=== PATIENT | male | born 1945 | race Hispanic/Latino ===

== ENCOUNTER 2018-03-27 09:53 | Outpatient (CLI) | payer MEDICARE ==
--- NOTE | 2018-03-27 13:11 | CT ---
CT OF THE CHEST WITHOUT CONTRAST: Date: 03/27/18 HISTORY: Chest x-ray showed an abnormality in the lung. COMPARISON: Chest x-ray dated 03/12/18. TECHNIQUE: Multiple contiguous axial images were obtained in a CT of the chest without contrast. Coronal reforma ts were performed. FINDINGS: A calcified granuloma is seen in the hilar region inferiorly in the right lung. No suspicious pulmona ry nodule is seen at the area of abnormality on chest x-ray. No pneumothorax or pleural effusions see n. No focal infiltrates are seen in the lungs. The heart is normal in size without focal cardiac abnormality. There are calcified hilar and mediasti nal lymph nodes. No enlarged hilar or mediastinal lymph nodes are present. The patient is status post cholecystectomy. Degenerative changes are seen in the spine. The chest wal l soft tissues are unremarkable. IMPRESSION: No suspicious intrathoracic abnormality. POS: [facility]
== END 2018-03-27 09:54 | disposition home or self-care (01) ==
LOC: CT 09:53
PROVIDERS: ATTEND Family Medicine
DX: R91.1 Solitary pulmonary nodule (principal)
CPT/HCPCS: 71250

== ENCOUNTER 2018-04-29 17:48 | Observation (INO) | payer MEDICARE ==
[2018-04-29 18:38] LABS: #Eosinphils 0.3 thou/uL (0.0-0.7); #Lymphocytes 0.6 thou/uL (1.20-3.40); #Monocytes 0.4 thou/uL (0.11-0.59); #Neutrophils 3.8 thou/uL (1.40-6.50); %Basophils 0.7 % (0.0-1.0); %Lymphocytes 11.1 % (21.0-51.0); %Monocytes 6.9 % (0.0-10.0); %Neutrophils 75.3 % (42.0-75.0); Mean Corpuscular HGB CONC 34.8 g/dL (32.0-36.0); Mean Corpuscular Hemoglobin 31.6 pg (27.0-31.0); Mean Corpuscular Volume 90.7 fL (78.0-98.0); Mean Platelet Volume 7.2 fL (7.4-10.4); Platelet Count 156 thou/uL (130-400); RBC Distribution Width 13.1 % (11.5-14.5); Red Blood Cell (RBC) Count 3.17 mill/uL (4.70-6.10); White Blood Cell (WBC) Count 5.1 thou/uL (4.8-10.8)
[2018-04-29 19:00] LABS: ALT (SGPT) 8 U/L (8-55); AST (SGOT) 9 U/L (5-34); Albumin 4.3 g/dL (3.4-4.8); Alkaline Phosphatase 106 U/L (40-150); Anion Gap 13 mmol/L (10-20); BUN (Urea Nitrogen) 62 mg/dL (8.4-25.7); Bilirubin, Total 0.3 mg/dL (0.2-1.2); Calc. Creatinine Clearance 0 mL/min (70-130); Calcium 7.9 mg/dL (7.8-10.44); Carbon Dioxide 16 mmol/L (23-31); Chloride 114 mmol/L (98-107); Estimated GFR-MDRD 11; Globulin 3.4 g/dL (2.4-3.5); Glucose 130 mg/dL (83-110); Lipase 70 U/L (8-78); Magnesium 1.8 mg/dL (1.6-2.6); Potassium 5.3 mmol/L (3.5-5.1); Protein, Total 7.7 g/dL (5.8-8.1); Sodium 138 mmol/L (136-145)
[2018-04-29 19:01] LABS: Troponin I 0.043 ng/mL (< 0.028)
[2018-04-29 19:16] LABS: Bilirubin Negative (Negative); Blood, Urine Moderate (Negative); Clarity CLEAR (Clear); Glucose, Urine (Dipstick) 100 mg/dL (Negative); Leukocyte Negative (Negative); Nitrite Negative (Negative); Protein, Urine (Dipstick) > or equal to 300 mg/dL (Neg-Trace); Specific Gravity, Urine 1.016 (1.002-1.036); Urobilinogen 0.2 mg/dL (0.2-1.0)
[2018-04-29 19:17] LABS: Bacteria/HPF None Seen HPF (None Seen); Hyaline Casts/LPF 4-6 HYALINE CAST LPF (0-3 Hyaline); Pathc Cast-AUWi Flag 1.01 (0-2.49); RBC/HPF 0-3 HPF (0-3); Squamous Epithelial 0-3 HPF (0-3)
--- NOTE | 2018-04-29 19:18 | RAD ---
ONE VIEW CHEST: 04/29/18 COMPARISON: 06/12/16, 04/27/18. FINDINGS: There is cardiomegaly and pulmonary vascular prominence. Interstitial edema is noted. There are bilat eral pleural effusions with bibasilar parenchymal change. Opacification of the right lung base is sta ble. There is increasing opacification of the left lung base. No pneumothorax or osseous abnormalitie s. IMPRESSION: 1. Congestive heart failure. 2. Right pleural and parenchymal changes. 3. Left parenchymal changes. 4. Possible bibasilar pneumonia. Continued surveillance. POS: [facility]
[2018-04-29 19:21] LABS: Yeast-AUWi Flag 63.2 (0-25.0)
[2018-04-29 19:30] LABS: Crystals/HPF 1+ AMORPH URATES HPF (Negative)
[2018-04-29] MEDS ORDERED: Acetaminophen 325 MG TAB PO PRN (20:55)
[2018-04-29] MEDS ORDERED: Ondansetron PF 4 MG/2 ML Vial IVP PRN (20:55)
[2018-04-29] MEDS ORDERED: Ondansetron ODT 4 MG TAB SL PRN (20:55)
[2018-04-29] MEDS ORDERED: Amoxicillin/Potassium Clav 875 MG TAB PO SCH (21:00)
[2018-04-29 21:13] VITALS: BMI 26.9
[2018-04-29] MEDS ORDERED: Dextrose 5% in Water 1,000 ML IV PRN (22:41)
[2018-04-29] MEDS ORDERED: Dextrose 50% Abboject 50 ML SYRINGE SLOW IVP PRN (22:41)
[2018-04-29] MEDS ORDERED: HumaLOG 300 UNITS/3 ML VIAL SC PRN ×2 (22:41)
[2018-04-29] MEDS ORDERED: Nitroglycerin 0.4 MG TAB (25 Tab Bottle) SL PRN (22:45)
[2018-04-30 05:09] LABS: #Eosinphils 0.2 thou/uL (0.0-0.7); #Lymphocytes 0.6 thou/uL (1.20-3.40); #Monocytes 0.3 thou/uL (0.11-0.59); #Neutrophils 2.9 thou/uL (1.40-6.50); %Basophils 0.3 % (0.0-1.0); %Eosinophils 5.6 % (0.0-10.0); %Lymphocytes 13.8 % (21.0-51.0); %Monocytes 7.9 % (0.0-10.0); %Neutrophils 72.4 % (42.0-75.0); Hemoglobin 8.8 g/dL (14.0-18.0); Mean Corpuscular HGB CONC 33.2 g/dL (32.0-36.0); Mean Corpuscular Hemoglobin 30.2 pg (27.0-31.0); Mean Platelet Volume 7.4 fL (7.4-10.4); Platelet Count 140 thou/uL (130-400); RBC Distribution Width 13.2 % (11.5-14.5); Red Blood Cell (RBC) Count 2.92 mill/uL (4.70-6.10); Reticulocyte Count 2.4 % (0.5-1.5)
[2018-04-30 05:14] LABS: Anion Gap 13 mmol/L (10-20); BUN (Urea Nitrogen) 61 mg/dL (8.4-25.7); Calc. Creatinine Clearance 14 mL/min (70-130); Calcium 7.6 mg/dL (7.8-10.44); Carbon Dioxide 16 mmol/L (23-31); Chloride 117 mmol/L (98-107); Estimated GFR-MDRD 12; Glucose 97 mg/dL (83-110); Iron 32 ug/dL (65-175); Iron Binding Capacity, Total 271 mcg/dL (261-462); Potassium 5.1 mmol/L (3.5-5.1); Sodium 141 mmol/L (136-145)
[2018-04-30 05:44] LABS: Folate (Folic Acid) 7.2 ng/mL (7.0-31.4)
--- NOTE | 2018-04-30 06:29 | HP ---
CHIEF COMPLAINT: Abdominal pain. HISTORY OF PRESENT ILLNESS: This is a 73-year-old male with past medical history of colon cancer, status post colectomy with ostomy stage 5 CKD, not on dialysis; PUD; hypertension; diabetes mellitus; recently treated for aspiration pneumonia with Augmentin in the outpatient setting. Patient is not coming in with epigastric abdominal pain, which has been ongoing prior to the day of admission. Per patient, he was sent to be evaluated in the ED by his primary care physician. The patient states that Dr. Langley is his GI doctor. The patient is here, so the patient can be able to be evaluated in the hospital for his epigastric pain and chest discomfort which radiates to his throat. Patient denies any fever, shortness of breath, or palpitations. Admits to vomiting x1. REVIEW OF SYSTEMS: Nausea and vomiting x1, epigastric pain and discomfort, otherwise as documented in the HPI. All other systems were reviewed and are negative. PAST MEDICAL HISTORY: Diabetes mellitus type 2; hypertension; hyperlipidemia; renal insufficiency; PUD; colon cancer, status post colectomy. PAST SURGICAL HISTORY: Cholecystectomy, colostomy. FAMILY HISTORY: Reviewed and noncontributory PSYCHIATRIC HISTORY: No psych history. SOCIAL HISTORY: Patient denies alcohol use, denies illicit drug use, or denies any smoking. KNOWN ALLERGIES: LATEX, GLOVES. CURRENT MEDICATIONS: The patient is on; 1. Augmentin 875 mg/125 mg. 2. Amlodipine 10 mg. 3. Aspirin 325 mg. 4. Metoprolol 25 mg. 5. Pantoprazole 40 mg. 6. Sodium bicarbonate 10. 7. Torsemide 20 mg. PHYSICAL EXAMINATION: VITAL SIGNS: Blood pressure is 167/74, pulse is 87, respiratory rate of 20, temperature of 98.5, O2 sat of 95. GENERAL: The patient is sitting on the edge of his bed, does not appear to be in any acute distress. The patient is emptying his ostomy bag. HEENT: Normocephalic, atraumatic. Pupils are equal, round, and react to light. Extraocular movements are intact. No scleral icterus. No conjunctival pallor. Mucous membranes are dry. NECK: No JVD. Full range of motion, supple. Trachea is midline. LUNGS: Clear to auscultation bilaterally. No wheezing, no rales, no rhonchi appreciated. CARDIAC: Positive S1, S2. Regular rate and rhythm. ABDOMEN: Mild tenderness at the epigastric region. No pulsatile masses. Bowel sounds are positive. Ostomy bag is in place with no output in the bag. EXTREMITIES: 5/5 upper extremity strength, 5/5 lower extremity strength. Trace edema noted at the lower extremities. NEUROLOGIC: Cranial nerves II through XII are grossly intact. No neurologic deficit noted. SKIN: Warm, dry, and intact. PSYCHIATRIC: Normal affect, alert and oriented x3. EKG: A 12-lead EKG shows normal sinus rhythm with a rate of 77. LABORATORY DATA: WBC is 5.1, hemoglobin is 10.0, hematocrit of 28.8, platelet count is 156,000. Sodium is 138, potassium is 5.3, chloride is 114, carbon dioxide of 16, anion gap of 13, BUN is 62, creatinine is 4.98. GFR is 11, glucose 130, total bilirubin 0.3. Troponin x1 is 0.043. Serum total protein is 7.7, lipase is 70. ASSESSMENT AND PLAN: This is a 73-year-old male being admitted for: 1. Epigastric pain, etiology unclear at this time; however, the patient's epigastric pain is likely due to gastroesophageal reflux disease. At this point , the patient has been started on proton pump inhibitor. We will continue proton pump inhibitors. We have consulted GI to evaluate the patient further, and I have ordered abdominal ultrasound, we will follow up on this order. 2. Hyperkalemia. We will repeat labs in the morning. We will monitor the patient closely. 3. Normocytic anemia most likely due to chronic inflammation. We have ordered iron panel, B12, and folate. We will follow up the results in the morning. 4. Colon cancer, status post resection, currently stable. Patient has an ostomy bag in place. We will continue current management. 5. Hypertension. We will continue patient current management. 6. End-stage renal disease. We will continue patient on current management. We have consulted Nephrology. 7. Diabetes mellitus type 2. We will continue patient on insulin sliding scale. 8. Deep venous thrombosis and gastrointestinal prophylaxis. MTDD
[2018-04-30] MEDS: Metoprolol Tartrate 25 MG TAB PO SCH ×2 (08:36→20:09)
[2018-04-30] MEDS: Aspirin 325 MG TAB PO SCH (08:36)
[2018-04-30] MEDS: Amlodipine 10 MG TAB PO SCH (08:36)
[2018-04-30] MEDS: Torsemide 20 MG TAB PO SCH (08:36)
[2018-04-30] MEDS: Heparin 5,000 UNITS/ML VIAL SC SCH ×2 (08:37→20:08)
--- NOTE | 2018-04-30 08:37 | ULT ---
GALLBLADDER ULTRASOUND: HISTORY: A 73-year-old male with a history of abdominal pain, epigastric pain, and nausea and vomiting. Histo ry of colon cancer and prior cholecystectomy. FINDINGS: Liver echotexture is somewhat coarse with slight liver lobulation. Right pleural effusion. Common b ile duct 0.5 cm. Pancreas is mostly obscured. There are several cysts within the central kidney whi ch demonstrate multiple septations as well as a 2.9 cm exophytic cyst off the right kidney. IMPRESSION: Status post cholecystectomy without significant ductal dilatation. Slightly coarse liver echotexture . Renal cysts including some multiseptated-appearing parapelvic cysts. Prior renal ultrasound exami nation of 10/22/2017 demonstrated similar-appearing multiple right renal cysts. POS: [facility]
[2018-04-30] MEDS: Sodium Bicarbonate Tab 325 MG TAB PO SCH ×2 (08:52→20:13)
[2018-04-30] MEDS ORDERED: Amoxicillin/Potassium Clav 875 MG TAB PO SCH ×2 (10:38→10:45)
--- NOTE | 2018-04-30 15:00 | CON ---
DATE OF CONSULTATION: 04/30/2018 GI INPATIENT CONSULTATION NOTE REASON FOR CONSULTATION: Epigastric pain. HISTORY OF PRESENT ILLNESS: Misha Tinoco is a 73-year-old gentleman seen in the outpatient [facility] by my GI colleague, Dr. Tom Langley. Dr. Langley met him last year in consultation for left-sided abdominal pain. On 12/05/2016, Dr. Langley performed an EGD which demonstrated a 6 mm ulcer in the gas tric antrum as well as erosive duodenitis. Gastric biopsies came back unremarkable. Dr. Langley also performed an ileoscopy to 40+ cm which was also normal. Notably, the patient has a history of total proctocolectomy with ileostomy back in [address] Langley had recommended the patient be on a PPI. The patient followed up a month later and was doing a bit better. The patient is not r eally sure whether he has continued PPI since then. His medication list does have pantoprazole 40 mg daily. At any rate, the patient said he was doing very well until about a week ago. At that point, he started having pain in the epigastrium, worse postprandially. The pain would radiate up into the chest and as far as the neck. He says if the pain gets as far as the neck, then he starts having a bit of shortness of breath. He does relate the discomfort to eating rather than physical exertion. He has had only one episode of emesis. There has been no change in ileostomy output. No lower abdom inal discomfort. Upon presentation last night, laboratory studies are showing hemoglobin 8.8, MCV 91 . The normal iron studies, B12 and folic acid. Normal LFTs and normal lipase. An abdominal ultraso und demonstrated absent gallbladder with no evidence of biliary dilation and a chest x-ray does show changes consistent with congestive heart failure and bilateral pleural effusions. REVIEW OF SYSTEMS: Full review of systems including constitutional, head, eyes, ears, nose, throat, GI, , cardiovascular, respiratory, musculoskeletal, and neurologic systems is negative except as no radha in the HPI. PAST MEDICAL HISTORY: Diabetes type 2; hypertension; hyperlipidemia; chronic kidney disease stage 5, not on dialysis; peptic ulcer disease in 11/2016; erosive duodenitis in 11/2016. PAST SURGICAL HISTORY: Cholecystectomy. Total proctocolectomy with ileostomy for colorectal cancer in 2005. Last ileoscopy in 2005, normal to 40+ cm. FAMILY HISTORY: His brother had colon cancer in his 50s. SOCIAL HISTORY: No smoking, alcohol, or drug use. ALLERGIES: LATEX GLOVES. OUTPATIENT MEDICATIONS: Augmentin, amlodipine, aspirin 325 mg daily, metoprolol 25 mg, pantoprazole 40 mg daily, sodium bicarbonate, and torsemide. PHYSICAL EXAMINATION: VITAL SIGNS: Temperature 98.7, blood pressure 156/70, pulse 70, 92% oxygen saturation on room air. GENERAL: Obese, 73-year-old gentleman lying in bed comfortably, in no distress. MENTAL: He is alert and oriented, pleasant and conversational. He can give a detailed history. SKIN: No jaundice. No rash visible or palpable. EYES: No scleral icterus. Extraocular movements intact. ENT: Mucous membranes moist. No oral lesions. LYMPH: No submandibular or supraclavicular lymphadenopathy. THYROID: Nontender to palpation. HEART: Regular rate and rhythm. LUNGS: Clear to auscultation bilaterally. ABDOMEN: Bowel sounds present, soft, tender to palpation in the epigastrium, but no guarding, reboun d tenderness. EXTREMITIES: No peripheral edema. VESSELS: Radial pulses 2+ bilaterally. NEUROLOGICAL: Cranial nerves II-XII intact bilaterally. No focal deficits. LABORATORY STUDIES: Hemoglobin 8.8, WBC 4.0, platelets 140, MCV 91. BUN 61, creatinine 4.79, glucos e 118. Total bilirubin 0.3, alkaline phosphatase 106, AST 9, ALT 8, albumin 4.3, lipase 70. Lactic acid 0.5. Troponin 0.04. Vitamin B12 is 270, folic acid 7.2, ferritin 120.9, TIBC 271. IMAGING STUDIES: Chest x-ray shows changes consistent with congestive heart failure and bilateral pl eural effusions. Abdominal ultrasound shows some coarse liver echotexture, absent gallbladder, zully l common bile duct, stable right-sided renal cysts. ASSESSMENT AND PLAN: 1. Epigastric pain. 2. Chest pain. 3. History of peptic ulcer disease. The patient relates his symptoms to oral intake and the pain characteristically start in the epigastr ium and goes up into the chest. This does seem probably consistent with upper GI mucosal pathology. He has a known history of peptic ulcer disease and it looks like he is on a full-strength aspirin, a nd probably daily pantoprazole as well. It would be reasonable to perform EGD for further investigat ion. We will plan to perform EGD tomorrow. Continue PPI in the meantime. We will write for a full liquid diet the rest of the day and n.p.o. after midnight for the procedure. Further recommendations following endoscopy. Thank you for the consultation. Please call any time with questions or concerns.
--- NOTE | 2018-04-30 18:06 | PDOC.PN ---
- Subjective Encounter Start Date: 04/30/18 Encounter Start Time: 14:00 Patient lying in bed, he reports epigastric pain and nausea after meals. He states he feels like his food comes right up after eating. He denies shortness of breath, fever or chills. He states these symptoms have been going on since . GI planning EGD tomorrow. Creatinine elevated however he is declining dialysis. - Objective Resuscitation Status: Resuscitation Status FULL:Full Resuscitation MAR Reviewed: Yes Vital Signs & Weight: Vital Signs (12 hours) Temp Pulse Resp BP BP Pulse Ox 04/30/18 15:14 98.4 F 76 20 157/72 H 95 04/30/18 11:02 98.7 F 70 16 156/70 H 92 L 04/30/18 08:36 90 146/99 H 04/30/18 08:30 20 92 L 04/30/18 07:10 98.3 F 90 20 149/66 H 91 L Weight Weight 166 lb 8 oz I&O: 04/29/18 04/30/18 05/01/18 06:59 06:59 06:59 Intake Total 600 Output Total 500 Balance 100 Result Diagrams: 04/30/18 04:13 04/30/18 04:13 Additional Labs: Accuchecks 04/30/18 04/29/18 11:49 20:50 POC Glucose 118 H 117 H Radiology Reviewed by me: Yes EKG Reviewed by me: Yes Phys Exam - Physical Examination Mild distress due to pain HEENT: PERRLA, moist MMs, sclera anicteric, oral pharynx no lesions edentulous noted Neck: no nodes, no JVD, supple Respiratory: no wheezing, no rales, no rhonchi, clear to auscultation bilateral Cardiovascular: RRR, no significant murmur, no rub Gastrointestinal: soft, no distention, positive bowel sounds epigastric tenderness Musculoskeletal: no edema, pulses present Neurological: non-focal, normal sensation, moves all 4 limbs Lymphatic: no nodes Psychiatric: normal affect, A&O x 3 Skin: no rash, normal turgor, cap refill <2 seconds Dx/Plan (1) Epigastric abdominal pain Code(s): R10.13 - EPIGASTRIC PAIN Status: Acute (2) History of peptic ulcer disease Code(s): Z87.11 - PERSONAL HISTORY OF PEPTIC ULCER DISEASE Status: Acute (3) Chronic kidney disease (CKD) Code(s): N18.9 - CHRONIC KIDNEY DISEASE, UNSPECIFIED Status: Acute (4) Chest pain Code(s): R07.9 - CHEST PAIN, UNSPECIFIED Status: Acute - Plan cont current plan of care, DVT proph w/heparin, DVT proph w/SCDs * Continue augmentin for possible pneumonia * Symptomatic treatment with antacid, PPI and zofran for nausea. * GI planning EGD tomorrow * Nephrology following for CKD, he is declining dialysis * Continue home medications and sliding scale, monitor sugars, vitals and labs closely * Further management pending results from EGD and patient progress
[2018-04-30] MEDS: Amoxicillin/Potassium Clav 875 MG TAB PO SCH (20:09)
[2018-04-30] MEDS ORDERED: Insulin Glargine 17 UNITS in Pre-Filled Syringe 1 EACH SC SCH (21:00)
[2018-04-30] MEDS ORDERED: INSULIN GLARGINE HUM REC ANLOG 17 UNIT SQ SCH (21:00)
[2018-05-01] MEDS ORDERED: Midazolam HCl 2 mg/2 ml Vial ONE (06:25)
[2018-05-01] MEDS ORDERED: Fentanyl 100 MCG/2 ML VIAL ONE (06:25)
--- NOTE | 2018-05-01 07:40 | CON ---
DATE OF CONSULTATION: 04/30/2018 NEPHROLOGY CONSULTATION CONSULTING PHYSICIAN: Dr. Chan Nathan. REASON FOR CONSULTATION: Chronic kidney disease, stage 5. REASON FOR ADMISSION: Abdominal pain. HISTORY OF PRESENT ILLNESS: This is 73-year-old male with history of diabetes, hypertension, hyperli pidemia came to the hospital with abdominal pain and was found to have elevated creatinine. Patient had a creatinine of 4.7. His baseline creatinine is around 4.4. He is to follow with Dr. Stewart and h as been refusing dialysis. Family is aware. No chest pain, palpitation. No abdominal pain. PAST MEDICAL HISTORY: Positive for type 2 diabetes, hypertension, hyperlipidemia, CKD, colon and chun g cancer. PAST MEDICAL HISTORY: Cholecystectomy, colostomy. HOME MEDICATIONS: Augmentin, amlodipine, aspirin, metoprolol, pantoprazole, sodium bicarbonate, tors emide. ALLERGIES: LATEX and PLAVIX. SOCIAL HISTORY: No smoking, alcohol or illicit drugs. FAMILY HISTORY: No significant for kidney disease. REVIEW OF SYSTEMS: The following complete review of systems was negative, unless otherwise mentioned in the HPI or below: Constitutional: Weight loss or gain, ability to conduct usual activities. Sk in: Rash, itching. Eyes: Double vision, pain. ENT/Mouth: Nose bleeding, neck stiffness, pain, te nderness. Cardiovascular: Palpitations, dyspnea on exertion, orthopnea. Respiratory: Shortness of breath, wheezing, cough, hemoptysis, fever, or night sweats. Gastrointestinal: Poor appetite, abdo ronal pain, heartburn, nausea, vomiting, constipation, or diarrhea. Genitourinary: Urgency, frequen cy, dysuria, nocturia. Musculoskeletal: Pain, swelling. Neurologic/Psychiatric: Anxiety, depressi on. Allergy/Immunologic: Skin rash, bleeding tendency. PHYSICAL EXAMINATION: GENERAL: This is a well-built male in no apparent distress. VITAL SIGNS: Temperature 99.4, pulse 73, respiratory rate 18, blood pressure 157/72. HEENT: Atraumatic, normocephalic. Oral mucosa is moist. NECK: Supple, no masses. HEART: S1, S2. Rate and rhythm regular. RESPIRATORY: Clear. ABDOMEN: Soft. MUSCULOSKELETAL: 1+ edema. DERMATOLOGIC: No skin rash. NEUROLOGIC: Alert, awake. PSYCHIATRIC: Normal mood and affect. LABORATORY AND X-RAY FINDINGS: Hemoglobin is 8.8. Potassium is 5.1, BUN 61, creatinine is 4.7. ASSESSMENT AND PLAN: 1. Chronic kidney disease, stage 5. Patient refusing dialysis. We will continue counseling. 2. Hyperkalemia. We will monitor. 3. Metabolic acidosis. We will monitor. 4. Anemia seems to be chronic. 5. Proteinuria. 6. No acute indication for dialysis. The refusing dialysis. We will continue counseling. Thank you for the consult.
--- NOTE | 2018-05-01 08:31 | OP ---
DATE OF PROCEDURE: 05/01/2018. SURGEON: Cricket Lunsford M.D. SERVICE DESK TECHNICIAN SURGEON: None. PROCEDURE PERFORMED: Esophagogastroduodenoscopy with biopsies. INDICATION: 1. Epigastric pain. 2. Chest pain. 3. History of peptic ulcer disease. MEDICATIONS: See anesthesia record. FINDINGS: After discussion of the risks, benefits and alternatives of the procedure, informed consen t was obtained and witnessed. Pre-endoscopic cardiopulmonary examination was satisfactory. DESCRIPTION OF PROCEDURE: Timeout was performed before sedation was achieved. Sedation was achieved with anesthesia assistance in the endoscopy unit. A Pentax adult upper endoscope was placed into th e oropharynx and passed through the cricopharyngeus under direct visualization. The esophageal mucos a appeared normal for the entire length of the esophagus. The Z-line is variable and is located at 4 1 cm from the incisors. The endoscope was advanced into the stomach. Forward and retroflexed views of the entire gastric mucosa were obtained. There are some patchy scattered areas of erythema throug hout the gastric fundus, body and antrum, and a few small erosions in the gastric antrum. There is n o larger ulcer within the stomach. I did obtain biopsies from the gastric antrum and body to evaluat e for H. pylori infection. The endoscope was advanced through the pylorus and into the first and sec ond portions of the duodenum, which appeared normal. The upper endoscope was completely withdrawn an d the patient allowed to recover. The patient tolerated the procedure well. There were no immediate post-procedure complications. IMPRESSION: 1. Erosive gastritis, mild. Biopsy to rule out Helicobacter pylori. 2. Normal esophagus. 3. Normal duodenum. RECOMMENDATIONS: 1. I would increase his PPI to twice daily dosing for now. 2. Advance diet. 3. Follow up pathology on the gastric biopsies. 4. GI will sign off at this time. The patient can follow up in the outpatient GI clinic with Dr. Frankie breen or his Physician [employer] in the next 2-3 weeks.
[2018-05-01] MEDS: Aspirin 325 MG TAB PO SCH (10:01)
[2018-05-01] MEDS: Heparin 5,000 UNITS/ML VIAL SC SCH (10:01)
[2018-05-01] MEDS: Amlodipine 10 MG TAB PO SCH (10:01)
[2018-05-01] MEDS: Amoxicillin/Potassium Clav 875 MG TAB PO SCH (10:01)
[2018-05-01] MEDS: Sodium Bicarbonate Tab 325 MG TAB PO SCH (10:02)
[2018-05-01] MEDS: Torsemide 20 MG TAB PO SCH (10:02)
[2018-05-01] MEDS: Metoprolol Tartrate 25 MG TAB PO SCH (10:02)
[2018-05-01 12:14] VITALS: BP 152/70; TEMP 98.2
[2018-05-01] MEDS ORDERED: PROPOFOL 200 MG/20 ML VIAL ONE (13:56)
--- NOTE | 2018-05-01 17:52 | PRG ---
DATE OF SERVICE: 05/01/2018 SUBJECTIVE: Patient was seen and examined at bedside and overnight events noted. Patient denies any shortness of breath or chest pain or palpitation. No history of nausea or vomiting or diarrhea or f ever or chills or cramps. OBJECTIVE: GENERAL: This is a well-built male in no apparent distress. VITAL SIGNS: Temperature 98.2, pulse 60, respiratory rate 18, blood pressure 152/70. HEENT: Atraumatic, normocephalic. Oral mucosa is moist. NECK: Supple. CARDIOVASCULAR: S1, S2 heard. Rate and rhythm regular. RESPIRATORY: Clear to auscultation. GASTROINTESTINAL: Abdomen is soft. MUSCULOSKELETAL: No tenderness. No edema. DERMATOLOGIC: No skin rash. NEUROLOGIC: Alert and awake and oriented x3. No focal neurologic deficits. Moving all the extremiti es. PSYCHIATRIC: Mood and affect normal. LABORATORY DATA: Not done today. ASSESSMENT AND PLAN: 1. Chronic kidney stage 5. The patient is refusing dialysis. We will continue counseling. 2. The patient is advised to follow up with Dr. Stewart in 1-2 weeks. 3. Hyperkalemia, stable. 4. Metabolic acidosis, anemia. 5. Proteinuria. The patient and family deciding on dialysis. We will follow.
--- NOTE | 2018-05-01 19:35 | DIS ---
DATE OF ADMISSION: 04/29/2018 DATE OF DISCHARGE: 05/01/2018 DISCHARGE DIAGNOSES: 1. Erosive gastritis, stable. 2. Epigastric pain secondary to #1, resolved. 3. Normocytic anemia, stable. 4. Colon cancer, status post resection, stable. 5. Hypertension, stable. 6. End-stage renal disease, stable. 7. Diabetes mellitus type 2, stable. CONSULTATIONS: Gastroenterology Service, Dr. Langley and Nephrology Service, Dr. Kumar. PERTINENT LABORATORY DATA AND CURRENT DIAGNOSTIC IMAGING: WBC 4.0, RBC 2.92, hemoglobin 8.8. Sodium 141, potassium on admission 5.3, trended down to 5.1, anion gap 13. Creatinine on admission 4.98 tr ended down to 4.79, GFR 12, glucose 117, magnesium 1.8, troponin 0.043. Urinalysis showed moderate b lood with 100 glucose. Abdominal ultrasound showed status post cholecystectomy without significant d uctal dilation, slightly coarse liver echotexture, renal cyst noted, however, these were seen on [facility] r examination, 10/22/2017. PROCEDURE: EGD showed erosive gastritis, mild. Biopsies were taken to rule out Helicobacter pylori, results pending. HOSPITAL COURSE: Mr. Tinoco was admitted for the evaluation of his epigastric pain that has been on going for the last 2-3 days. He has a past medical history of colon cancer, status post colectomy wi th ostomy, stage 5 chronic kidney disease, not on dialysis, peptic ulcer disease, hypertension, diabe manuel mellitus, and recent treatment for aspiration, no pneumonia with Augmentin. He states the pain a lso was giving him some nausea and vomiting; however, he had denied any fever, chills, shortness of b reath or palpitations. Nephrology Services were consulted due to patient's elevated creatinine on ad [place]; however, after further discussion, patient had declined dialysis. He had talks with his [facility] as outpatient, Dr. Stewart. However, patient does not feel that he needs dialysis at this time. Risks and further benefits were thoroughly explained to the patient and he continued to d ecline dialysis. GI Services were also consulted for further evaluation of his pain. Abdominal ultr asound displayed status post cholecystectomy without significant ductal dilation; however, it did marco w some renal cysts that were present prior examination on 10/22/2017. He was started on a clear liqu id diet, tolerated well and also continued on PPI with Protonix 40 mg daily. He was taken for EGD an d was found at that time, he had erosive gastritis. Dr. Lunsford with GI did recommend that patient cont inue PPI twice daily and follow up in the outpatient GI clinic with Dr. Langley in 2-3 weeks. Patholog y on gastric biopsies is pending. He had tolerated PPI well and was also started on Zofran as needed for his nausea. His diet was advanced and he was able to tolerate a renal diet without any complica tions. He was seen and examined prior to discharge. He had no further complaints of chest pain, marco rtness of breath or abdominal pain, no nausea or vomiting. He was able to ambulate down the [place] wit hout any acute symptoms. Further discharge plan was thoroughly explained to him and he was told to c ontinue PPI twice daily and he was giving a prescription of this along with Zofran as needed for his nausea, he was also instructed to finish course of Augmentin for his possible aspiration pneumonia. He had verbalized his understanding for discharge plan and he was medically stable for discharge home on 05/01/2018. FOLLOWUP: The patient is to follow up with his primary care physician at [facility] in 1-2 weeks, he is also to follow up in the outpatient GI Clinic with Dr. Langley in 2-3 weeks to review pathology report on gastric biopsies. The patient was also instructed to follow up with his nephrol ogist, Dr. Stewart in 2-3 weeks. CONDITION ON DISCHARGE: Stable. ACTIVITY: As tolerated. DIET: Renal. CODE STATUS: FULL CODE. DISPOSITION: Home on 05/01/2018.
--- NOTE | 2018-05-11 16:35 | EKG ---
Test Reason : Blood Pressure : / mmHG Vent. Rate : 077 BPM Atrial Rate : 077 BPM P-R Int : 172 ms QRS Dur : 078 ms QT Int : 402 ms P-R-T Axes : 033 011 125 degrees QTc Int : 454 ms Normal sinus rhythm T wave abnormality, consider lateral ischemia Abnormal ECG No changes from 12-JUN-2016 Confirmed by SONJA NOVAK DO ([id number]), news editor ZAIDA VILLELA ([id number]) on 05/11/2018 4:35:29 PM Referred By: Confirmed By:SONJA NOVAK DO
== END 2018-05-01 15:44 | disposition home or self-care (01) ==
LOC: ERS 17:48 → 2SW 19:30 → ERS 20:24
PROVIDERS: ADMIT Family Medicine; ATTEND Family Medicine
PROC: 0DB68ZX Excision of Stomach, Via Natural or Artificial Opening Endoscopic, Diagnostic (ICD-10-PCS; principal; 2018-05-01)
DX: K29.50 Unspecified chronic gastritis without bleeding (principal); K25.9 Gastric ulcer, unspecified as acute or chronic, without hemorrhage or perforation; I12.0 Hypertensive chronic kidney disease with stage 5 chronic kidney disease or end stage renal disease; E11.22 Type 2 diabetes mellitus with diabetic chronic kidney disease; N18.6 End stage renal disease; D63.1 Anemia in chronic kidney disease; E78.5 Hyperlipidemia, unspecified; J18.9 Pneumonia, unspecified organism; E87.5 Hyperkalemia; E87.2 Acidosis; Z85.038 Personal history of other malignant neoplasm of large intestine; Z79.2 Long term (current) use of antibiotics; Z79.4 Long term (current) use of insulin; Z79.82 Long term (current) use of aspirin; Z79.899 Other long term (current) drug therapy; Z91.040 Latex allergy status; Z90.49 Acquired absence of other specified parts of digestive tract; Z93.2 Ileostomy status; Z91.15 Patient's noncompliance with renal dialysis
CPT/HCPCS: 43239; 71045; 76705; 80048; 80053; 82553; 82607; 82728; 82746; 82962 ×3; 83540; 83550; 83605; 83690; 83735; 84484; 85025 ×2; 85046; 88305; 88312; 93005; 99285; G0378 ×2; 36415; 36416; 81003; 81015; J1644; J2250; J2704; J3010